=== PATIENT | male | born 1965 | race Caucasian/White ===

== ENCOUNTER 2021-03-28 15:57 | Emergency (ER) | payer BC ==
--- NOTE | 2021-03-28 18:26 | EDM.PDOC ---
ED HPI GENERAL MEDICAL PROBLEM - General Chief Complaint: ENT Problem Stated Complaint: NOSE BLEED Time Seen by Provider: 03/28/21 17:47 Source of Information: Reports: Patient - History of Present Illness INITIAL COMMENTS - FREE TEXT/NARRATIVE: 56-year-old male presents to the emergency department complaining of nosebleed since 12 PM. No trauma. Patient has not had problems with nosebleeds in the sd [address]. No skin rash or bleeding diatheses. No exacerbating or alleviating factors. - Related Data Allergies Allergy/AdvReac Type Severity Reaction Status Date / Time Unable to Assess Allergy Unverified 03/28/21 16:36 Past Medical History - Past Health History Medical/Surgical History: Denies Medical/Surgical History - Infectious Disease History Infectious Disease History: Reports: Chicken Pox Social & Family History - Tobacco Use Tobacco Use Status *Q: Current Every Day Tobacco User Years of Tobacco use: 45 Packs/Tins Daily: 1 ED ROS GENERAL - Review of Systems Review Of Systems: See Below Constitutional: Denies: Fever HEENT: Reports: Other (Nosebleed) Respiratory: Reports: No Symptoms Skin: Denies: Rash ED EXAM, GENERAL - Physical Exam Exam: See Below Free Text/Narrative:: CONSTITUTIONAL: well appearing in no acute distress SKIN: dry, and intact without rash HENT: Normocephalic, atraumatic. Patient with bilateral diffuse oozing from both nostrils on the medial mucosa. NECK: normal range of motion PULMONARY: normal chest rise and fall, no respiratory distress or stridor NEUROLOGIC: normal speech, moves all extremities, grossly non-focal MUSCULOSKELETAL: no gross deformities, atraumatic PSYCHIATRIC: normal mood and affect ED GENERAL MEDICAL PROCEDURES - Additional/Other Procedure(s) Other (Free Text) Procedure(s): Bilateral Rhino Rocket placement. Rhino Rocket' were placed bilaterally inflated with 8 cc of air. Patient tolerated the procedure well with exception of mild gagging, without complications Course - Vital Signs Text/Narrative:: Differential diagnosis: Nosebleed, thrombocytopenia, bleeding diatheses, other Patient presents with nosebleed. Bleeding did not stop after half hour of direct pressure. Rhino Rocket's were needed to be placed. Laboratory testing done given the extent of oozing diffusely and markedly. Results pending; ROLY Suarez 7pm. Nasal tampon removal in 3 days with return precautions 03/29/21 1:42pm Finishing charts. It is noticed that the patient had a leukocytosis. There is no marked signs of infection and perhaps this was a stress response but I do not see any documentation from Dr. Suarez. As such the patient was contacted and voicemail left to see how he is doing and to discuss findings Patient called back and states that he is not bleeding around the site of Rhino Rocket insertion. Patient denies any recent fever or infectious complaints. He states that the moment things are going okay. He plans to come back as directed to have the packing removed. He is instructed to return for any fevers or any change or worsening condition Last Recorded V/S: Last Vital Signs Temp Pulse 76 03/28/21 19:33 Resp 18 03/28/21 19:33 BP 177/94 H 03/28/21 19:33 Pulse Ox 95 03/28/21 19:33 - Orders/Labs/Meds Labs: Laboratory Tests 03/28/21 03/28/21 Range/Units 18:50 18:50 WBC 17.28 H (4.0-11.0) K/uL RBC 4.74 (4.50-5.90) M/uL Hgb 14.3 (13.0-17.0) g/dL Hct 42.1 (38.0-50.0) % MCV 88.8 (80.0-98.0) fL MCH 30.2 (27.0-32.0) pg MCHC 34.0 (31.0-37.0) g/dL RDW Std Deviation 48.1 (28.0-62.0) fl RDW Coeff of Jamila 15 (11.0-15.0) % Plt Count 325 (150-400) K/uL MPV 10.50 (7.40-12.00) fL Neut % (Auto) 82.4 H (48.0-80.0) % Lymph % (Auto) 14.1 L (16.0-40.0) % [place] % (Auto) 3.1 (0.0-15.0) % Eos % (Auto) 0.1 (0.0-7.0) % Baso % (Auto) 0.3 (0.0-1.5) % Neut # (Auto) 14.2 H (1.4-5.7) K/uL Lymph # (Auto) 2.4 (0.6-2.4) K/uL [place] # (Auto) 0.5 (0.0-0.8) K/uL Eos # (Auto) 0.0 (0.0-0.7) K/uL Baso # (Auto) 0.1 (0.0-0.1) K/uL Nucleated RBC % 0.0 /100WBC Nucleated RBCs # 0 K/uL INR 0.99 Departure - Departure Time of Disposition: 19:30 Disposition: Home, Self-Care 01 Condition: Good Clinical Impression: Nosebleed - Discharge Information Instructions: Nosebleed, Adult, [id number] Referrals: PCP,None [Primary Care Provider] - Forms: ED Department Discharge Additional Instructions: Please have packing removed and 2 to 3 days. Return for any bleeding, change or worsening condition. Sepsis Event Note (ED) - Evaluation Sepsis Screening Result: No Definite Risk
== END 2021-03-28 19:35 | disposition home or self-care (01) ==
LOC: MW.ED 15:57
DX: R04.0 Epistaxis (principal); Z72.0 Tobacco use
CPT/HCPCS: 30903; 36415; 85025; 85610; 99283-25

== ENCOUNTER 2021-03-31 08:16 | Emergency (ER) | payer BC ==
[2021-03-31] MEDS ORDERED: Oxymetazoline 0.05% Nasal Spray 30 ML Bottle NAS ONE (08:28)
[2021-03-31] MEDS ORDERED: Lidocaine 1% with EPINEPHrine 1:100,000 10 ML MDV INJECT ONE (08:28)
--- NOTE | 2021-03-31 08:29 | EDM.PDOC ---
ED HPI GENERAL MEDICAL PROBLEM - General Chief Complaint: ENT Problem Stated Complaint: NOSE BLEED FOLLOW UP Time Seen by Provider: 03/31/21 08:23 - History of Present Illness INITIAL COMMENTS - FREE TEXT/NARRATIVE: 56-year-old male presents for nasal packing removal. He was seen in the emergency department on March 28 for bilateral nosebleed exam by that provider revealed oozing from the bilateral septum bilateral Rhino Rocket's were placed and patient was discharged. Patient reports some mucus and coughing but no fever nasal discomfort but no severe facial pain. Patient anxious for the packing to be removed. - Related Data Allergies Allergy/AdvReac Type Severity Reaction Status Date / Time No Known Allergies Allergy Verified 03/31/21 08:24 Home Meds: Home Meds . [No Known Home Meds] 03/31/21 [History] Past Medical History - Past Health History Medical/Surgical History: Denies Medical/Surgical History - Infectious Disease History Infectious Disease History: Reports: Chicken Pox ED ROS GENERAL - Review of Systems Review Of Systems: See Below Free Text/Narrative/Comment: General: No fever. Eyes: No vision problems. ENT: Per HPI Neck: No neck stiffness. Respiratory: No shortness of breath. Cardiac: No chest pain. Gastrointestinal: No nausea, vomiting or abdominal pain. Neurologic: No headache. ED EXAM, GENERAL - Physical Exam Exam: See Below Free Text/Narrative:: General Appearance: No acute distress, appears comfortable Skin: No rash HEENT: Normocephalic/atraumatic, sclera anicteric, mucous membranes moist, on packing removal the bilateral anterior nasal septum is very raw with some slow oozing bleeding no foreign body is noted Neck: Normal range of motion Chest and Lungs: Normal work of breathing Cardiovascular: Intact distal perfusion Psychiatric: Appropriate, cooperative Course - Vital Signs Last Recorded V/S: Last Vital Signs Temp 97.6 F 03/31/21 08:24 Pulse 92 03/31/21 08:24 Resp 16 03/31/21 08:24 BP 121/79 03/31/21 08:24 Pulse Ox 99 03/31/21 08:24 - Orders/Labs/Meds Meds: Medications Discontinued Medications Generic Name Dose Route Start Last Admin Trade Name Freq PRN Reason Stop Dose Admin Lidocaine/Epinephrine 10 ml 03/31/21 08:28 03/31/21 08:44 Lidocaine 1% With Epinephrine 1:100,000 10 Ml Mdv INJECT 03/31/21 08:29 Not Given ONETIME ONE Lidocaine/Epinephrine Confirm 03/31/21 08:36 03/31/21 08:44 Lidocaine 1% With Epinephrine 1:100,000 20 Ml Mdv Administered 03/31/21 08:37 Not Given Dose 20 ml .ROUTE .STK-MED ONE Lidocaine/Epinephrine 20 ml 03/31/21 08:42 03/31/21 08:43 Lidocaine 1% With Epinephrine 1:100,000 20 Ml Mdv INJECT 03/31/21 08:43 20 ml ONETIME ONE Administration Oxymetazoline HCl 1 ml 03/31/21 08:28 03/31/21 08:43 Oxymetazoline 0.05% Nasal [place] 30 Ml Bottle CRISELDA 03/31/21 08:29 1 ml ONETIME ONE Administration Departure - Departure Time of Disposition: 09:30 Disposition: Home, Self-Care 01 Condition: Good Clinical Impression: Epistaxis not due to trauma - Discharge Information *PRESCRIPTION DRUG MONITORING PROGRAM REVIEWED*: Not Applicable *COPY OF PRESCRIPTION DRUG MONITORING REPORT IN PATIENT MARIANA: Not Applicable Instructions: Nosebleed, Adult Forms: ED Department Discharge Additional Instructions: Please do not blow your nose or be around things that could make you sneeze for the next few days. Please use an [id number] saline nasal spray 2-3 times daily in each nostril to help keep the area moist. If you have any bleeding please immediately apply direct pressure by squeezing your nose as instructed here in the ER. I encourage you to use the nasal clip to help with this. Once you do that set a timer and do not check for 10 minutes. This is usually enough to stop the vast majority of nosebleeds. If this does not work we apply the clip and wait 20 minutes. If your nose is still bleeding after that and I will call your doctor or return to the ER. I also encourage you to wear a mask particularly when you are around dust to help prevent the dust from adhering to the inside of your nose to help keep the air moist. Sepsis Event Note (ED) - Evaluation Sepsis Screening Result: No Definite Risk - Focused Exam Vital Signs: Vital Signs Temp Pulse Resp BP Pulse Ox 03/31/21 08:24 97.6 F 92 16 121/79 99 - Assessment/Plan Assessment:: 56-year-old male presents with ongoing slow nasal bleeding after packing removal. Bilateral nares packed with cotton soaked in lidocaine with epinephrine as well as Afrin. We will check again in 20 minutes. 0930: After packing was removed bilateral nares were inspected all packing had been removed and there was no residual bleeding no visible vessels no signs of active bleeding that would be amenable to cautery. Patient started to use saline nasal spray to use the mask and avoid dust which he gets a significant amount of in his job. Patient instructed not to blow his nose for at least 2 days return precautions discussed and understood.
[2021-03-31] MEDS ORDERED: Lidocaine 1% with EPINEPHrine 1:100,000 20 ML MDV ONE (08:36)
[2021-03-31] MEDS ORDERED: Lidocaine 1% with EPINEPHrine 1:100,000 20 ML MDV INJECT ONE (08:42)
== END 2021-03-31 09:38 | disposition home or self-care (01) ==
LOC: MW.ED 08:16
DX: R04.0 Epistaxis (principal)
CPT/HCPCS: 99283